=== PATIENT | female | born 1955 | race Caucasian/White ===

== ENCOUNTER 2021-05-01 11:24 | Emergency (ER) | payer BC ==
[~2021-05-01] VITALS: Ht 165.1 cm; Wt 77.1 kg
[2021-05-01 13:28] VITALS: BP 172/109
== END 2021-05-01 13:35 | disposition home or self-care (01) ==
LOC: ER 11:24
DX: H53.141 Visual discomfort, right eye (principal); Z98.890 Other specified postprocedural states; Z86.16 Personal history of COVID-19